=== PATIENT | female | born 1955 | race Caucasian/White ===

== ENCOUNTER 2018-03-02 12:56 | Inpatient (IN) | payer SELFPAY ==
[2018-03-02 13:44] LABS: ADD MAN DIFF? NO
[2018-03-02 13:49] LABS: BASOPHILS % 1.1 % (0.0-2.0); EOSINOPHILS # 0.1 10^3/ul (0.0-0.5); HEMATOCRIT 42.3 % (37.0-47.0); HEMOGLOBIN 14.4 g/dl (12.0-16.0); LYMPHOCYTES # 1.9 10^3/ul (0.8-2.9); LYMPHOCYTES % 50.3 % (15.0-51.0); MEAN CORPUSCULAR HEMOGLOBIN 32.3 pg (29.0-33.0); MEAN CORPUSCULAR VOLUME 94.8 fl (82.0-101.0); MEAN PLATELET VOLUME 9.4 fl (7.4-10.4); MONOCYTE # 0.4 10^3/ul (0.3-0.9); MONOCYTES % 10.2 % (0.0-11.0); NEUTROPHIL # 1.3 10^3/ul (1.6-7.5); NEUTROPHILS % 35.1 % (39.0-77.0); PLATELET COUNT 241 10^3/UL (140-415); RED BLOOD COUNT 4.46 10^6/ul (4.20-5.40); RED CELL DISTRIBUTION WIDTH 11.9 % (11.5-14.5)
[2018-03-02 13:49] LABS: WHITE BLOOD COUNT 3.7 10^3/ul (4.8-10.8)
[2018-03-02 14:16] LABS: ANION GAP 11 (8-16); BLOOD UREA NITROGEN 12 mg/dl (7-20); CALCIUM 9.2 mg/dl (8.4-10.2); CARBON DIOXIDE 31 mmol/L (21-31); CHLORIDE 103 mmol/L (97-110); GLUCOSE 96 mg/dl (70-220); MAGNESIUM 2.4 mg/dl (1.7-2.5); POTASSIUM 3.9 mmol/L (3.5-5.1); SODIUM 141 mmol/L (135-144)
[2018-03-02 14:24] LABS: B-TYPE NATRIURETIC PEPTIDE 1240 PG/ML (0-125)
[2018-03-02] MEDS: ASPIRIN 325 MG TAB PO (14:26)
[2018-03-02] MEDS: NITROGLYCERIN 2% 1 GM OINT PKT TD (14:26)
[2018-03-02 15:14] LABS: INR 0.94; PROTIME 12.7 Sec (11.9-14.9)
[2018-03-02 15:15] LABS: PARTIAL THROMBOPLASTIN TIME 42.5 Sec (25.0-35.0)
[2018-03-02 16:11] LABS: D-DIMER 300.65 ng/ml (<460)
[2018-03-02] MEDS ORDERED: FENTAnyl 50 MCG/ML VIAL (16:36)
[2018-03-02] MEDS ORDERED: MIDAZOLAM 1 MG/ML 2 ML INJ (16:36)
[2018-03-02] MEDS ORDERED: HEPARIN 1000 UNITS/ML 10 ML INJ ×3 (16:36→17:39)
[2018-03-02] MEDS ORDERED: IODIXANOL LOCM 100 ML BTL (16:36)
[2018-03-02] MEDS ORDERED: LIDOCAINE 1% (MDV) 20 ML INJ (16:36)
[2018-03-02] MEDS ORDERED: NITROGLYCERIN (IC) 100 MCG/ML INJ (16:37)
[2018-03-02] MEDS ORDERED: VERAPAMIL 5 MG INJ (16:37)
[2018-03-02] MEDS ORDERED: SOD CHLORIDE 0.9% 1,500 ML (16:52)
[2018-03-02] MEDS ORDERED: IOHEXOL 350MG/ML 50 ML BTL (16:52)
[2018-03-02] MEDS ORDERED: TICAGRELOR 90 MG TABLET (16:55)
[2018-03-02] MEDS ORDERED: BIVALIRUDIN 250MG /NS 50 ML 50 ML IVPB (17:03)
[2018-03-02] MEDS ORDERED: DOPamine-D5W 1.6 MG/ML 250 ML (17:26)
[2018-03-02] MEDS ORDERED: LIDOCAINE 100 MG SYRINGE (17:26)
[2018-03-02] MEDS ORDERED: morphine 2 MG INJ IV (17:30)
[2018-03-02] MEDS ORDERED: ONDANSETRON 4 MG INJ IV ×2 (17:30→18:30)
[2018-03-02] MEDS ORDERED: ACETAMINOPHEN 325 MG TAB PO (17:30)
[2018-03-02] MEDS ORDERED: OXYCODONE/ACETAMINOPHEN (5/325) TAB PO (17:30)
[2018-03-02] MEDS ORDERED: BIVALIRUDIN 250 MG in SOD CHLORIDE 0.9% 500 ML IV (17:30)
[2018-03-02] MEDS ORDERED: ROCURONIUM 50 MG INJ (17:37)
[2018-03-02] MEDS ORDERED: ONDANSETRON 4 MG INJ (17:38)
[2018-03-02] MEDS: SOD CHLORIDE 0.9% 1,000 ML IV (18:19)
[2018-03-02] MEDS ORDERED: NACL 0.9% 3 ML SYG IV (18:30)
[2018-03-02] MEDS ORDERED: HYDROCODONE/APAP (5/325) TAB PO (18:30)
[2018-03-02] MEDS ORDERED: LORAZEPAM 0.5 MG TAB PO (18:30)
[2018-03-02] MEDS ORDERED: MAGNESIUM HYDROXIDE 30ML CUP PO (18:30)
[2018-03-02] MEDS ORDERED: DOCUSATE SODIUM 100 MG CAP PO (18:30)
[2018-03-02] MEDS: morphine 2 MG INJ IV (19:03)
[2018-03-02 20:11] LABS: CREATINE KINASE 117 IU/L (23-200)
[2018-03-02 20:25] LABS: CK INDEX 6.9; CK-MB 8.13 ng/ml (0.0-2.4)
[2018-03-02] MEDS: DOCUSATE SODIUM 100 MG CAP PO (21:00)
[2018-03-02] MEDS ORDERED: ATROPINE 1 MG/10 ML SYRINGE (21:59)
[2018-03-02] MEDS: ATORVASTATIN 80 MG TAB PO (22:33)
[2018-03-02] MEDS: ISOSORBIDE DINITRATE 20 MG TAB PO (22:34)
[2018-03-02] MEDS: FAMOTIDINE 20 MG TAB PO (22:35)
[2018-03-02] MEDS: TICAGRELOR 90 MG TABLET PO (22:35)
[2018-03-03 05:16] LABS: ADD MAN DIFF? NO
[2018-03-03 05:19] LABS: BASOPHILS % 0.7 % (0.0-2.0); EOSINOPHILS # 0.1 10^3/ul (0.0-0.5); EOSINOPHILS % 1.7 % (0.0-7.0); HEMATOCRIT 30.1 % (37.0-47.0); HEMOGLOBIN 10.2 g/dl (12.0-16.0); LYMPHOCYTES % 23.4 % (15.0-51.0); MEAN CORPUSCULAR HEMOGLOBIN 32.4 pg (29.0-33.0); MEAN CORPUSCULAR HGB CONC 33.9 g/dl (32.0-37.0); MEAN CORPUSCULAR VOLUME 95.6 fl (82.0-101.0); MEAN PLATELET VOLUME 9.9 fl (7.4-10.4); MONOCYTE # 0.3 10^3/ul (0.3-0.9); MONOCYTES % 8.3 % (0.0-11.0); NEUTROPHIL # 2.7 10^3/ul (1.6-7.5); NEUTROPHILS % 65.9 % (39.0-77.0); PLATELET COUNT 204 10^3/UL (140-415); RED BLOOD COUNT 3.15 10^6/ul (4.20-5.40); RED CELL DISTRIBUTION WIDTH 12.1 % (11.5-14.5)
[2018-03-03 05:19] LABS: WHITE BLOOD COUNT 4.1 10^3/ul (4.8-10.8)
[2018-03-03 05:40] LABS: CREATINE KINASE 83 IU/L (23-200)
[2018-03-03 05:47] LABS: ALANINE AMINOTRANSFERASE 24 IU/L (13-69); ALBUMIN 3.3 g/dl (3.3-4.9); ALBUMIN/GLOBULIN RATIO 1.13; ALKALINE PHOSPHATASE 62 IU/L (42-121); ASPARTATE AMINO TRANSFERASE 36 IU/L (15-46); BILIRUBIN,INDIRECT 0.5 mg/dl (0-1.1); BILIRUBIN,TOTAL 0.5 mg/dl (0.2-1.3); BLOOD UREA NITROGEN 9 mg/dl (7-20); CALCIUM 8.7 mg/dl (8.4-10.2); CARBON DIOXIDE 29 mmol/L (21-31); CHLORIDE 105 mmol/L (97-110); CHOL/HDL RATIO 2.4 RATIO; CHOLESTEROL 147 mg/dl (100-200); CREATININE 0.59 mg/dl (0.44-1.00); GLUCOSE 89 mg/dl (70-220); HDL CHOLESTEROL 61 mg/dl (35-98); LDL CHOLESTEROL,CALCULATED 74 mg/dl; MAGNESIUM 1.8 mg/dl (1.7-2.5); SODIUM 140 mmol/L (135-144); TOTAL PROTEIN 6.2 g/dl (6.1-8.1); TRIGLYCERIDES 58 mg/dl (0-149)
[2018-03-03 05:51] LABS: B-TYPE NATRIURETIC PEPTIDE 811 PG/ML (0-125)
[2018-03-03 05:53] LABS: CK INDEX 6.2; CK-MB 5.14 ng/ml (0.0-2.4)
[2018-03-03 06:00] LABS: FREE T4 (FREE THYROXINE) 1.17 ng/dl (0.78-2.44)
[2018-03-03 06:06] LABS: ANION GAP 10 (8-16); POTASSIUM 4.2 mmol/L (3.5-5.1)
[2018-03-03] MEDS: DOCUSATE SODIUM 100 MG CAP PO (08:56)
[2018-03-03] MEDS: ISOSORBIDE DINITRATE 20 MG TAB PO ×2 (08:56→12:39)
[2018-03-03] MEDS: ASPIRIN (EC) 81 MG TAB PO (08:56)
[2018-03-03] MEDS: FAMOTIDINE 20 MG TAB PO (08:57)
[2018-03-03] MEDS: TICAGRELOR 90 MG TABLET PO (08:57)
[2018-03-03] MEDS: METOPROLOL (XL) 25 MG TAB PO (08:57)
[2018-03-03] MEDS: ACETAMINOPHEN 325 MG TAB PO (08:59)
[2018-03-03] MEDS: BISACODYL (EC) 5 MG TAB PO (11:23)
[2018-03-03] MEDS: AL HYDROX/MG HYDROX/SIMETH 30 ML CUP PO (12:38)
[2018-03-03] MEDS ORDERED: ATORVASTATIN 40 MG TAB PO (21:00)
== END 2018-03-03 13:30 | disposition home or self-care (01) | DRG 247 ==
LOC: ICU 15:45 → E/R 12:56 → REC 17:28 → ICU 18:37
PROC: 027034Z Dilation of Coronary Artery, One Artery with Drug-eluting Intraluminal Device, Percutaneous Approach (ICD-10-PCS; principal; 2018-03-02 16:17)
PROC: 02C03ZZ Extirpation of Matter from Coronary Artery, One Artery, Percutaneous Approach (ICD-10-PCS; 2018-03-02 16:17)
PROC: 4A023N7 Measurement of Cardiac Sampling and Pressure, Left Heart, Percutaneous Approach (ICD-10-PCS; 2018-03-02 16:17)
PROC: B211YZZ Fluoroscopy of Multiple Coronary Arteries using Other Contrast (ICD-10-PCS; 2018-03-02 16:17)
PROC: B215YZZ Fluoroscopy of Left Heart using Other Contrast (ICD-10-PCS; 2018-03-02 16:17)
DX: I21.4 Non-ST elevation (NSTEMI) myocardial infarction (principal); I25.10 Atherosclerotic heart disease of native coronary artery without angina pectoris; I10 Essential (primary) hypertension; F17.200 Nicotine dependence, unspecified, uncomplicated; Z82.49 Family history of ischemic heart disease and other diseases of the circulatory system
CPT/HCPCS: 36415; 71045; 80048; 80053; 80061; 82550; 82553; 83735; 83880; 84439; 84443; 84484; 85025; 85378; 85610; 85730; 87081; 93005; 93306; 93458; 93970; 96374; 99291-25